=== PATIENT | male | born 1990 | race Caucasian/White ===

== ENCOUNTER 2020-09-13 12:42 | Emergency (ER) | payer OTHER ==
[~2020-09-13] VITALS: Ht 170.2 cm; Wt 68.0 kg
[~2020-09-13 12:42] MED LIST: 382 PO; ALAVERT10 M1 PO; ALBUTEROL2.5 MG/31; CLA10 PO; DANTROLENE SODI50 MG GT; DANTROLENE SODI50 MG PO; DOCUSATE100 MG GT; FAMOTIDINE40 MG/5 ML GT; KEP500 PO; KEPPRA500 MG/5 M GT; LIO10 GT; LIO10 PO; LORAZEPAM1 PO; OXCARBAZEPINE600 MG PO; OXYCARBAZEPINE GT; PATANASE0.6% NS; PEPCID GT
[2020-09-13 12:45] VITALS: Ht 170.2 cm; Wt 68.0 kg
[2020-09-13 13:37] LABS: BASOPHIL % 0.2 % (0-2); PLATELET COUNT 302 x10^3mcL (130-400); RED CELL DISTRIBUTION WIDTH 13.2 % (11.5-14.5)
[2020-09-13 14:27] LABS: CALCIUM 9.2 mg/dL (8.5-10.1); CARBON DIOXIDE 24.2 mmol/L (21-32); CHLORIDE SERUM 98 mmol/L (98-107); CREATININE SERUM 0.7 mg/dL (0.7-1.3); GFR1 > 60 mL/min; GLUCOSE SERUM 89 mg/dL (74-106); SODIUM SERUM 134 mmol/L (136-145)
[2020-09-13 14:29] LABS: POTASSIUM SERUM 4.3 mmol/L (3.5-5.1)
[2020-09-13 14:36] LABS: ALBUMIN 4.2 g/dL (3.4-5.0); ALKALINE PHOSPHATASE 135 U/L (46-116); ALT/SGPT 47 U/L (16-63); AST/SGOT 38 U/L (15-37); BILIRUBIN TOTAL 0.3 mg/dL (0.20-1.00); TOTAL PROTEIN, SERUM 7.9 g/dL (6.4-8.2)
[2020-09-13 15:16] VITALS: BP 110/70
== END 2020-09-13 15:16 | disposition home or self-care (01) ==
LOC: ED 12:42
PROVIDERS: Emergency Medicine
DX: G40.909 Epilepsy, unspecified, not intractable, without status epilepticus (principal)
CPT/HCPCS: J1953; Q0092